=== PATIENT | female | born 2005 | race Caucasian/White ===

== ENCOUNTER 2023-07-09 11:31 | Day surgery (SDC) | payer MEDICAID ==
[~2023-07-09] VITALS: Ht 154.9 cm; Wt 54.4 kg
[2023-07-09 11:47] LABS: HCG,QUAL RESULT NEGATIVE (NEGATIVE)
[2023-07-09] MEDS ORDERED: OXYMETAZOLINE HCL 0.05% NASAL SPRAY NS ONE (14:00)
[2023-07-09 14:29] VITALS: O2SAT 99
[2023-07-09] MEDS ORDERED: MIDAZOLAM HCL 2 MG/2 ML VIAL (VERSED) IVP PRN (14:45)
[2023-07-09] MEDS ORDERED: METOCLOPRAMIDE HCL 10 MG/2 ML VIAL IVP PRN (14:45)
[2023-07-09] MEDS ORDERED: MEPERIDINE HCL/PF 25 MG/ML DISP.SYRIN IVP PRN (14:45)
[2023-07-09] MEDS ORDERED: LR 1,000 ML IV SCH (14:45)
[2023-07-09] MEDS ORDERED: hydrALAZINE HCL 20 MG/ML VIAL IVP PRN (14:45)
[2023-07-09] MEDS ORDERED: HYDROmorphone 1 MG/ML INJ. CARTRIDGE IVP PRN ×2 (14:45)
[2023-07-09] MEDS ORDERED: LABETALOL 100 MG/ 20ML VIAL IVP PRN (14:45)
[2023-07-09 18:46] VITALS: BP_SYST 123; PULSE 67; RESP 18
== END 2023-07-09 18:25 | disposition home or self-care (01) ==
LOC: SDS 11:31 → SMU 11:33 → SDS 18:25
PROVIDERS: ATTEND Otolaryngology
DX: D38.5 Neoplasm of uncertain behavior of other respiratory organs (principal); J34.2 Deviated nasal septum; J45.20 Mild intermittent asthma, uncomplicated; D64.9 Anemia, unspecified; F41.9 Anxiety disorder, unspecified; Z79.899 Other long term (current) drug therapy
CPT/HCPCS: 30520; 30140; 31296; 84703; 88304; 88311; 31256; J1100; J3490; J2250; J2710; J2405; J2704; J3010; J7120